=== PATIENT | female | born 1995 | race Caucasian/White ===

== ENCOUNTER 2022-04-29 10:45 | Emergency (ER) | payer BC ==
[~2022-04-29] VITALS: Ht 162.6 cm; Wt 78.0 kg
[2022-04-29 11:06] VITALS: BP 132/76
--- NOTE | 2022-04-29 11:06 | NUR ---
26 y/o female, c/o left foot 5th digit pain since yesterday after hitting it on doorframe. pt states area is a little swollen and hard to ambulate with. no obvious deformities. skin pink/warm/dry, slight bruising on area of pain. a&ox4, ambulates with steady gait, pt states pain worsens at night. pmh: denies allergy: penicillin med: denies
--- NOTE | 2022-04-29 11:44 | NUR ---
pt being seen in [facility] at this time by jonna alvarado
[2022-04-29] MEDS ORDERED: ACETAMINOPHEN EXTRA STRENGTH 500 MG TAB PO ONE (11:50)
[2022-04-29] MEDS ORDERED: IBUP-1842 PO (12:11)
--- NOTE | 2022-04-29 12:22 | NUR ---
PER ER MID LEVEL, CRUTCHES GIVEN AND PT RETURNED SAFE DEMONSTRATION. ATUL TAPE ALSO APPLIED TO L 4/5 DIGIT
[2022-04-29 12:24] VITALS: BP 121/77
--- NOTE | 2022-04-29 12:24 | NUR ---
Patient discharged with v/s stable. Written and verbal after care instructions given and explained. Patient alert, oriented and verbalized understanding of instructions. Ambulatory USING CRUTCHES. All questions addressed prior to discharge. ID band removed. Patient advised to follow up with PMD. Rx of MOTRIN given. Opportunity to ask questions provided and answered. WORK NOTE PROVIDED
== END 2022-04-29 12:25 | disposition home or self-care (01) ==
LOC: MED 10:45
DX: S92.912A Unspecified fracture of left toe(s), initial encounter for closed fracture (principal); W22.8XXA Striking against or struck by other objects, initial encounter; Y93.89 Activity, other specified; Y92.89 Other specified places as the place of occurrence of the external cause; Y99.8 Other external cause status
CPT/HCPCS: 73630; 99283